=== PATIENT | female | born 2000 | race Caucasian/White ===

== ENCOUNTER 2020-12-04 03:23 | Inpatient (IN) | payer MEDICAID, SELFPAY ==
[2020-12-04] VITALS (19 sets, daily range): BP systolic 99–154; BP diastolic 43–84; PULSE 77–120; RESP 12–24; TEMP 36.2–38.2; O2SAT 96–100
--- NOTE | ~2020-12-04 | CT_ITS ---
EXAMINATION: CT abdomen pelvis wo con DATE: 12/04/2020 07:47 INDICATION: Left flank pain. Low abdominal pain. TECHNIQUE: Computed tomography (CT) of the abdomen and pelvis was performed without intravenous contr ast. Automated exposure control and iterative reconstruction technique were employed. The dose-length product was 792.83 mGy-cm. COMPARISON: None. FINDINGS: The visualized portions of the lung bases are clear without pneumonia or pleural effusion. The heart size is normal. No pericardial effusion. The liver and spleen are normal. The gallbladder i s distended, likely secondary to fasting. The pancreas, adrenal glands, and right kidney are normal. There are greater than 10 stones in left renal pelvis and proximal left ureter measuring up to 18 mm. There are multiple stones in left kidney measuring up to 6 mm. There is moderate left hydronephrosis . There are foci of gas in the proximal left ureter and in a left renal calyx. There is fat stranding in the left perinephric space. There are no dilated loops of bowel. The appendix is normal. There is mild left para-aortic lymphadenopathy. The bones are unremarkable. IMPRESSION: 1. Stones in the proximal left ureter and left kidney with moderate left hydronephrosis and emphysema tous pyelitis. 2. Mild left para-aortic lymphadenopathy, likely reactive. Reviewed, dictated and finalized at location A. WEAR SALES COORDINATOR IMPRESSION: 1. Stones in the proximal left ureter and left kidney with moderate left hydron ephrosis and emphysematous pyelitis. 2. Mild left para-aortic lymphadenopathy, likely reactive.
--- NOTE | ~2020-12-04 | XR_ITS ---
EXAMINATION: XR retrograde pyelo w/stent LT DATE: 12/04/2020 14:38 INDICATION: Left internal ureteral stent placement TECHNIQUE: Fluoroscopic images from a left internal ureteral stent placement are submitted for review . 23 seconds of fluoroscopy time. FINDINGS: Initial left retrograde pyelogram demonstrates filling defects in the left renal collecting system, consistent with stones. There is a left double-J internal ureteral stent projecting in expected position, with proximal [place] loop at the level of the renal pelvis and distal loop in the pelvis within the bladder lumen. IMPRESSION: 1. Left internal ureteral stent placement. Please refer to real-time procedural findings for detail s. Reviewed, dictated and finalized at location B. INE SUBASSEMBLER IMPRESSION: 1. Left internal ureteral stent placement. Please refer to real-time procedur al findings for details.
--- NOTE | ~2020-12-04 | XR_ITS ---
XR abdomen/kub 1V 12/04/2020 09:47 Indication: Left flank pain. Left renal stone. Procedure: KUB Comparison: No prior studies for comparison. Findings: There are left renal stones, largest measuring approximately 1.4 x 2.5 cm greatest dimensio n. Bowel gas pattern. Moderate colonic fecal loading. No acute osseous abnormality. Impression: 1: Left nephrolithiasis. Reviewed, dictated and finalized at location B. US POLICE OFFICER Impression: 1: Left nephrolithiasis.
--- NOTE | 2020-12-04 04:03 | PC.NURSE ---
pt thrashing and rocking back and forth, pt refusing iv ,pulled away.
[2020-12-04 04:27] LABS: Basophils Percent Auto 0.2 % (0.2-1.2); Eosinophils Percent Auto 0.2 % (0-4.4); Hematocrit 38.2 % (37.0-47.0); Hemoglobin 12.5 g/dL (12.0-15.0); Immature Granulocyte Absolute 0.06 K/mm3 (0.00-0.031); Immature Granulocyte Percent A 0.4 % (0-0.5); Lymphocytes Absolute Auto 0.89 K/mm3 (0.9-3.2); Lymphocytes Percent Auto 6.6 % (18.3-44.2); Mean Corpuscular HGB Conc 32.7 g/dl (32-36); Mean Corpuscular Hemoglobin 29.1 pg (26-34); Mean Platelet Volume 9.7 fl (7.4-10.4); Monocytes Absolute Auto 0.6 K/mm3 (0.1-0.6); Monocytes Percent Auto 4.1 % (2.6-8.5); Neutrophils Absolute Auto 11.9 K/mm3 (1.3-6.7); Neutrophils Percent Auto 88.5 % (45.5-73.1); Platelet Count Result 260 k/mm3 (150-375); Red Blood Count 4.29 M/mm3 (4.2-5.4); Red Cell Distribution Width 13.2 % (11.5-14.5); White Blood Count 13.5 K/mm3 (4.5-10.0)
[2020-12-04] MEDS: SODIUM CHLORIDE 0.9% IV 1,000 ML 999 ML IV CONT (04:30)
[2020-12-04] MEDS: ONDANSETRON INJ 4 MG/2 ML VIAL IV PUSH (04:31)
[2020-12-04] MEDS: MORPHINE SULFATE (*CRX) 4 MG/ML INJ IV PUSH ×2 (04:32→10:25)
--- NOTE | 2020-12-04 05:25 | ED.GENADULT ---
HPI - General Adult General Chief complaint: Abdominal Pain <Harley Gerber MD - Last Filed: 12/04/20 07:07> Stated complaint: abd pains <Harley Gerber MD - Last Filed: 12/04/20 07:07> Time Seen by Provider: 12/04/20 03:34 <Harley Gerber MD - Last Filed: 12/04/20 07:07> History of Present Illness HPI narrative: Patient is a 20-year-old female who presents to the ER with left-sided abdominal pain. Began yesterday throughout the left side of the entire abdomen. Has increased in pain her last 24 hours unremarkably so prior to arrival. Mild nausea but no vomiting. No urinary symptoms. Normal bowel movements. No trauma. No history of kidney stones or ovarian cyst. Denies vaginal discharge or bleeding. Has not found any alleviating factors at home. Has not tried any oral medications. <Harley Gerber MD - Last Filed: 12/04/20 07:07> Related Data Allergies/adverse reactions: Allergies Allergy/AdvReac Type Severity Reaction Status Date / Time No Known Allergies Allergy Verified 12/04/20 03:29 <Harley Gerber MD - Last Filed: 12/04/20 07:07> Review of Systems Review of Systems: All systems reviewed & are unremarkable except as noted in HPI and below <Harley Gerber MD - Last Filed: 12/04/20 07:07> Constitutional: Constitutional: Denies chills, Denies fever(s) and Denies weakness <Harley Gerber MD - Last Filed: 12/04/20 07:07> ENT: Denies nasal congestion and Denies sore throat <Harley Gerber MD - Last Filed: 12/04/20 07:07> Cardiovascular: Cardiovascular: Denies chest pain, Denies rapid heart rate and Denies radiating jaw, neck or arm pain <Harley Gerber MD - Last Filed: 12/04/20 07:07> Respiratory: Respiratory: Denies cough and Denies dyspnea <Harley Gerber MD - Last Filed: 12/04/20 07:07> Gastrointestinal: Gastrointestinal: Reports abdominal pain, Denies diarrhea, Reports nausea and Denies vomiting <Harley Gerber MD - Last Filed: 12/04/20 07:07> Genitourinary: Genitourinary: Denies abnormal vaginal bleeding, Denies hematuria, Denies nocturia and Denies dysuria <Harley Gerber MD - Last Filed: 12/04/20 07:07> Musculoskeletal: Musculoskeletal: Denies back pain and Denies muscle cramps <Harley Gerber MD - Last Filed: 12/04/20 07:07> PMFSH Past Medical History Medical History: Medical History (Updated 12/04/20 @ 12:03 by Humza Evans MD) Healthy female adult Overweight (BMI 25.0-29.9) <Harley Gerber MD - Last Filed: 12/04/20 07:07> Surgical History Surgical History: Surgical History No history of previous surgery <Harley Gerber MD - Last Filed: 12/04/20 07:07> Social History Social History: Social History Gender identity (if verbalized by the patient): Female <Harley Gerber MD - Last Filed: 12/04/20 07:07> Exam Narrative: Exam Narrative: GENERAL: Uncomfortable-appearing and moaning, well-nourished, and in mild distress. HEAD: Normocephalic, atraumatic. ENT: Mucous membranes moist. CHEST: Clear to auscultation. No respiratory distress. HEART: Regular rate and rhythm. Normal peripheral pulses. ABDOMEN: Soft, nontender, nondistended. No CVA tenderness. EXTREMITIES: Normal range of motion. No edema. SKIN: Warm, dry, no rash. NEURO: Alert and oriented x3. <Harley Gerber MD - Last Filed: 12/04/20 07:07> Course Course Emergency Course: Care turned myself at shift change. Patient seen evaluate myself agree with initial H&P awaiting CT scan abdomen pelvis Called and discussed with DOROTHY Cummings for urology. Will come see patient this time Urology came to see patient with plan for the OR this morning <John Blanco DO - Last Filed: 12/04/20 12:05> Reevaluation(s) Reevaluation #1: Pain resolved with morphine. Unremarkable abdomen at this
[2020-12-04 05:32] LABS: Alanine Aminotransferase 13 U/L (4-35); Albumin Level 4.1 g/dL (3.5-5.1); Alkaline Phosphatase 62 U/L (38-126); Anion Gap 7 mmol/L (8-16); Aspartate Amino Transferase 24 U/L (14-36); Bilirubin,Total 0.8 mg/dL (0.2-1.3); Blood Urea Nitrogen 14 mg/dL (7-17); Calcium 9.1 mg/dL (8.4-10.2); Carbon Dioxide 27 mmol/L (22-30); Chloride 103 mmol/L (98-107); Estimated CRCL calculation 103 ml/min; Estimated Glomerular Filt Rate > 60; Glucose 129 mg/dL (65-105); Lipase 49 U/L (23-300); Potassium 4.2 mmol/L (3.4-5.0); Sodium 137 mmol/L (137-145)
[2020-12-04 06:01] LABS: Add Urine Microscopic? YES; Appearance Urine Cloudy (Clear); Bacteria Urine Trace /hpf; Bilirubin Urine Negative (Negative); Blood Urine Negative (Negative); Color Urine Yellow (Yellow); Glucose Urine UA Negative (Negative); Ketones Urine Negative (Negative); Leukocyte Esterase Ur 2+ LEU/UL (Negative); Mucus Urine Rare /lpf; Nitrate Urine Negative (Negative); Protein Urine Negative (Negative); Specific Grav Ur 1.016 (1.001-1.035); Squamous Epithelial Cell Urine Occasional /hpf (Few); WBC Urine >75 /hpf
--- NOTE | 2020-12-04 08:20 | PC.NURSE ---
CT results done. blood cultures sent. Dr. Blanco aware. rocephin started. patient resting on stretcher. waiting for further orders.
--- NOTE | 2020-12-04 09:20 | WPDURCON ---
Assessment and Plan Assessment and plan (1) Pyelonephritis: Code(s): N12 - Tubulo-interstitial nephritis, not specified as acute or chronic Status: Acute Assessment and Plan: Continue IV antibiotics, admit to medicine service and tailor antibiotics to urine culture results. (2) Left ureteral stone: Code(s): N20.1 - Calculus of ureter Status: Acute Assessment and Plan: Obtain consent: Cystoscopy, left ureteroscopy with stent placement, left retrograde pyelogram. Keep NPO. Plan to go to the OR this morning. (3) Renal calculus, left: Code(s): N20.0 - Calculus of kidney Status: Acute Assessment and Plan: Will obtain KUB for surgical planning ESWL versus PCNL. Urology Consult Note HPI Date Seen: 12/04/20 Primary Care Provider: INTERACTIVE PRODUCER PHYSICIAN Consult Narrative Narrative: Lisa Levin is a 20 year old female who presented to the ER early this morning with acute onset of abdominal pain in the LLQ and left flank. She denies hematuria, dysuria, frequency, urgency, nausea, vomiting or incontinence. She is very sedated from pain medications and is difficult to arouse to go over medical history. Her WBC is elevated at 13.5, creatinine is normal at 0.90, UA is suspicious of a UTI and urine culture is pending. She is currently on Rocephin and had a CT scan abdomen/pelvis which reveals 10 stones in left renal pelvis and proximal left ureter measuring up to 18 mm. There are multiple stones in left kidney measuring up to 6 mm. There is moderate left hydronephrosis. There are foci of gas in the proximal left ureter and in a left renal calyx. Review of Systems Cardiovascular: Cardiovascular: Denies chest pain Respiratory: Respiratory: Reports no additional respiratory complaints Gastrointestinal: Gastrointestinal: Reports abdominal pain, Denies nausea and Denies vomiting Genitourinary: Genitourinary: Denies hematuria, Denies dysuria, Reports pelvic pain, Reports flank pain and Denies urinary urgency PMFSH Past Medical History Medical History Healthy female adult Surgical History Surgical History No history of previous surgery Social History Social History : Female Meds Home Medications and Allergies Home Medications Medication Instructions Recorded Confirmed Type ciprofloxacin HCl [Cipro] 500 mg PO Q12H #20 tablet 12/04/20 Rx hydrocodone-acetaminophen 1 tablet PO Q6H PRN #12 tablet 12/04/20 Rx ondansetron 4 mg PO Q6H PRN #10 tablet 12/04/20 Rx Allergies Allergy/AdvReac Type Severity Reaction Status Date / Time No Known Allergies Allergy Verified 12/04/20 03:29 Vital Signs Vital Signs - 24 hr 12/04/20 03:26 12/04/20 05:39 Temperature 97.1 F L Pulse Rate 80 89 Respiratory Rate 24 H 18 Blood Pressure 115/53 L 154/84 H Pulse Oximetry 100 100 Exam Resp: Effort & Inspection: normal respiratory effort Cardio: Rate: regular rate GI: GI Palp: No Soft to palpation and Yes Tenderness to palpation present (GI) (LLQ) : General: Yes CVA tenderness on the left Extrem: General: no edema Results Labs CBC & Chem 7: 12/04/20 04:20 12/04/20 04:20 Labs: Short CBC 12/04/20 Range/Units 04:20 WBC 13.5 H (4.5-10.0) K/mm3 Hgb 12.5 (12.0-15.0) g/dL Hct 38.2 (37.0-47.0) % Plt Count 260 (150-375) k/mm3 BMP 12/04/20 04:20 Sodium 137 Potassium 4.2 Chloride 103 Carbon Dioxide 27 BUN 14 Creatinine 0.90 Glucose 129 H Calcium 9.1 Liver Function 12/04/20 Range/Units 04:20 Total Bilirubin 0.8 (0.2-1.3) mg/dL AST 24 (14-36) U/L ALT 13 (4-35) U/L Alkaline Phosphatase 62 (38-126) U/L Albumin 4.1 (3.5-5.1) g/dL Urine 12/04/20 Range/Un
[2020-12-04 10:16] LABS: Lactic Acid Reflex 0.9 mmol/L (0.7-2.1)
[2020-12-04] MEDS: SODIUM CHLORIDE 0.9% IV 1,000 ML 150 ML IV CONT (10:25)
--- NOTE | 2020-12-04 10:25 | PC.NURSE ---
pain medication given as ordered. patient going to the OR today. patient and SO aware. will call OR for time.
--- NOTE | 2020-12-04 10:53 | PC.NURSE ---
report given to Agueda SAM. patient scheduled for OR at 1300. resting on stretcher. alert. SO at bedside.
--- NOTE | 2020-12-04 12:03 | WPDANESEPPF ---
Anes - Initial Pre Proc Eval Procedure: Operation Date: 12/04/20 13:00 Proposed Procedures p Cystoscopy, Left Stent Placement, Left Retrograde Pyelogram(Left) - Vitaliy Ga MD Date/Time: 12/04/20 12:03 Surgeon: Vitaliy Ga MD Pre Op Diagnosis: abd pains Patient Data Age: 20 Gender: F Height: 5 ft 9 in Weight: 91 kg Last Vital Signs Temp 97.1 F L 12/04/20 03:26 Pulse 89 12/04/20 05:39 Resp 18 12/04/20 05:39 BP 154/84 H 12/04/20 05:39 Pulse Ox 100 12/04/20 05:39 Allergies Allergy/AdvReac Type Severity Reaction Status Date / Time No Known Allergies Allergy Verified 12/04/20 03:29 Home Medications Medication Instructions Recorded Confirmed Type ciprofloxacin HCl [Cipro] 500 mg PO Q12H #20 tablet 12/04/20 Rx hydrocodone-acetaminophen 1 tablet PO Q6H PRN #12 tablet 12/04/20 Rx ondansetron 4 mg PO Q6H PRN #10 tablet 12/04/20 Rx Laboratory Tests 12/04/20 12/04/20 12/04/20 04:20 04:20 05:49 WBC 13.5 K/mm3 H K/mm3 (4.5-10.0) RBC 4.29 M/mm3 M/mm3 (4.2-5.4) Hgb 12.5 g/dL g/dL (12.0-15.0) Hct 38.2 % % (37.0-47.0) MCV 89.0 fl fl (80-100) MCH 29.1 pg pg (26-34) MCHC 32.7 g/dl g/dl (32-36) RDW 13.2 % % (11.5-14.5) Plt Count 260 k/mm3 k/mm3 (150-375) MPV 9.7 fl fl (7.4-10.4) Immature Gran % (Auto) 0.4 % % (0-0.5) Neut % (Auto) 88.5 % H % (45.5-73.1) Lymph % (Auto) 6.6 % L % (18.3-44.2) [place] % (Auto) 4.1 % % (2.6-8.5) Eos % (Auto) 0.2 % % (0-4.4) Baso % (Auto) 0.2 % % (0.2-1.2) Lymph # (Auto) 0.89 K/mm3 L K/mm3 (0.9-3.2) [place] # (Auto) 0.6 K/mm3 K/mm3 (0.1-0.6) Eos # (Auto) 0.0 K/mm3 K/mm3 (0-0.3) Baso # (Auto) 0.0 K/mm3 K/mm3 (0.0-0.1) Abs Immat Gran (auto) 0.06 K/mm3 H K/mm3 (0.00-0.031) Absolute Neuts (auto) 11.9 K/mm3 H K/mm3 (1.3-6.7) Absolute Nucleated RBC 0.0 K/mm3 K/mm3 (0.0-0.012) Nucleated RBC % 0.0 % % (0.0-0.2) Sodium 137 mmol/L mmol/L (137-145) Potassium 4.2 mmol/L mmol/L (3.4-5.0) Chloride 103 mmol/L mmol/L (98-107) Carbon Dioxide 27 mmol/L mmol/L (22-30) Anion Gap 7 mmol/L L mmol/L (8-16) BUN 14 mg/dL mg/dL (7-17) Creatinine 0.90 mg/dL mg/dL (0.7-1.0) Estim Creat Clear Calc 103 ml/min ml/min Estimated GFR > 60 (59 - ) Glucose 129 mg/dL H mg/dL (65-105) Lactic Acid Calcium 9.1 mg/dL mg/dL (8.4-10.2) Total Bilirubin 0.8 mg/dL mg/dL (0.2-1.3) AST 24 U/L U/L (14-36) ALT 13 U/L U/L (4-35) Alkaline Phosphatase 62 U/L U/L (38-126) Total Protein 8.0 g/dL g/dL (6.3-8.2) Albumin 4.1 g/dL g/dL (3.5-5.1) Lipase 49 U/L U/L (23-300) Urine Color Yellow (Yellow) Urine Appearance Cloudy H (Clear) Urine pH 8.0 (5.0-9.0) Ur Specific [place] 1.016 (1.001-1.035) Urine Protein Negative mg/dL mg/dL (Negative) Urine Glucose (UA) Negative mg/dL mg/dL (Negative) Urine Ketones Negative mg/dL mg/dL (Negative) Ur Blood (Man) Negative (Negative) Urine Nitrate Negative (Negative) Urine Bilirubin Negative (Negative) Urine Urobilinogen 4.0 mg/dL H mg/dL (<2.0) Leukocyte Esterase Rfl 2+ SHELBIE/UL H SHELBIE/UL (Negative) Urine RBC 3-5 /hpf H /hpf (0-2) Urine WBC >75 /hpf H /hpf Ur Squamous Epith Cells Occasional /hpf /hpf (Few) Urine Bacteria Trace /hpf /hpf Urine Mucus Rare /lpf /lpf 12/04/20 09:47 WBC RBC Hgb Hct MCV MCH MCHC RDW Plt C
[2020-12-04] MEDS: LACTATED RINGERS 1,000 ML 30 ML IV CONT ×2 (12:30→15:15)
--- NOTE | 2020-12-04 13:13 | WPDHPUPDATE1 ---
History and Physical Update Update Date/Time: 12/04/20 13:13 History and Physical has been reviewed, including an updated exam of the patient. There are NO changes in the patient's condition. Risks, benefits, and alternatives have been discussed and questions answered. Patient agrees to proceed with procedure.
--- NOTE | 2020-12-04 13:49 | P.OP_ITS ---
Procedure Note - Detailed Date of procedure: 12/04/20 Pre-op diagnosis: abd pains left UPJ stone Post-op diagnosis: same Procedure performed: cystoscopy, left retrograde pyelogram, left stent placement Description of procedure: she was correctly identified. Informed consent is obtained. She is brought to the operating room. She was prepped and draped in a sterile fashion time out was performed. She was already given antibiotics. Cystoscopy revealed a normal-appearing bladder. Ureteral orifice was normal. No stone was seen on material handling equipment stevedore radiograph. I did a gentle retrograde pyelogram on the left. Several large stones were outlined in the UPJ. They are radiolucent stones. I placed a 4.8 variable length stent. Proximal coil the renal pelvis. Distal coil in the bladder. Cloudy urine was seen coming through the stent. The bladder was drained. Uro jet was applied. She was awakened and transferred to the PACU in stable condition. Anesthesia: MAC Surgeon: Vitaliy Ga MD Estimated blood loss (mL): 0 Drains: Yes ( 4.8 variable length stent) Packing: No Pathology: none sent Complications: No immediate complications Condition: stable Disposition: PACU
[2020-12-04] MEDS: LIDOCAINE HCL 2% GEL UROJET 10 ML PKG MUCOUS MEM (13:52)
--- NOTE | 2020-12-04 16:00 | PM.IMHP ---
H&P: HPI History of Present Illness Date/Time: 12/04/20 16:00 Chief Complaint: Left flank pain. Narrative: This is a 20-year-old healthy female who presented to the emergency department earlier this morning with complaints of left flank pain. Yesterday she developed sudden onset of sharp, shooting pain in the left flank radiating to the left lower quadrant. She gives no alleviating factors and in fact was having a hard time even sitting still in the emergency department due to the pain. She has not noticed any significant alleviating factors aside from pain medications. Associated symptoms include nausea and chills. CT of the abdomen and pelvis done on arrival to the emergency department showed stones in the proximal left ureter and left kidney with moderate left hydronephrosis and emphysematous pyelitis. She is now status post cystoscopy with left retrograde pyelogram, and stent placement per Dr. Ga, and he reported to me that there was purulence at discharge when the stent was placed.. I saw the patient in the recovery room and she reports that her pain is pretty well controlled. Prior to this she had no knowledge of kidney stones. She denies current fever, chills, sweats, nausea, and vomiting. She denies dysuria and hematuria. Review of Systems Review of Systems: Narrative: Twelve systems were reviewed with pertinent positives and negatives as per HPI. Last menstrual period was at the beginning of October. No recent cold or flu symptoms. No exposure to COVID. She has recently been having some discomfort in her left ankle, with mild swelling and erythema although that has improved. She denies injury to the ankle. No history of gout. No history of arthritis or septic arthritis. No concerns for STDs. Except as documented, all other systems were reviewed and are negative. [facility] Past Medical History Medical History Healthy female adult Overweight (BMI 25.0-29.9) Surgical History Surgical History No history of previous surgery Family History Family History (Updated 12/04/20 @ 21:08 by Carla Aguirre PA-C) Other Addiction Social History Social History (Updated 12/04/20 @ 21:13 by Carla Aguirre PA-C) Social History: Surrogate decision maker: Milton Valdes, son. Code status: Full code. 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 Last use: meth 12/04/20; fentanyl 12/03/20 Additional living arrangements comments: The patient lives in [place] with her boyfriend in his grandfather. Additional occupation/education comments: Unemployed. Gender identity (if verbalized by the patient): Female Spiritual care concerns: No Meds Home Medications and Allergies Home Medications Medication Instructions Recorded Confirmed Type ciprofloxacin HCl [Cipro] 500 mg PO Q12H #20 tablet 12/04/20 Rx hydrocodone-acetaminophen 1 tablet PO Q6H PRN #12 tablet 12/04/20 Rx ondansetron 4 mg PO Q6H PRN #10 tablet 12/04/20 Rx Allergies Allergy/AdvReac Type Severity Reaction Status Date / Time No Known Allergies Allergy Verified 12/04/20 17:42 Vital Signs Vital Signs - 24 hr 12/04/20 03:26 12/04/20 05:39 12/04/20 12:17 Temperature 97.1 F L 97.4 F L Pulse Rate 80 89 77 Respiratory Rate 24 H 18 16 Blood Pressure 115/53 L 154/84 H 107/55 L Pulse Oximetry 100 100 99 12/04/20 13:48 12/04/20 14:00 12/04/20 14:15 Temperature 98.0 F Pulse Rate 87 88 90 Respiratory Rate 12 18 18 Blood Pressure 105/52 L 103/55 L 115/59 L Pulse Oximetry 100 100 100 12/04/20 14:30 12/04/20 14:45 12/04/20 15:00 Temperature 97.6 F Pulse Rate 84 94 118 H Respiratory Rate 18 20 24 H Blood Pressure 111/65 117/63 134/80 Pulse Oximetry 100 100 100 12/04/20
--- NOTE | 2020-12-04 16:58 | ADMGEN ---
This patient, Lisa Levin, was admitted to 2 Medical Room 261-01. Patient/family oriented to hospital policies and general routines including ID bracelet, bed and alarms, visiting hours, pain management, procedures, bathroom and other care routines, personal items, smoking policy, room service/diet, and visiting hours. Information on how to activate the Rapid Response Team has been discussed. Patient/Family are encouraged to report perceived risks to care and to ask questions if they do not understand what they are told or what they should do.
[2020-12-04] MEDS: SODIUM CHLORIDE 0.9% IV 1,000 ML 100 ML IV CONT (17:09)
[2020-12-04] MEDS: PHENAZOPYRIDINE HCL 100 MG TABLET 200 MG PO (18:11)
[2020-12-05] MEDS: MORPHINE SULFATE (*CRX) 2 MG/ML INJ IV PUSH ×4 (01:11→19:50)
[2020-12-05] MEDS: SODIUM CHLORIDE 0.9% IV 1,000 ML 100 ML IV CONT ×3 (01:21→22:24)
[2020-12-05 06:00] VITALS: BP 122/59; PULSE 90; RESP 16; TEMP 37; O2SAT 100; BMI 32.3
[2020-12-05 07:49] LABS: Hematocrit 31.2 % (37.0-47.0); Hemoglobin 9.9 g/dL (12.0-15.0); Mean Corpuscular HGB Conc 31.7 g/dl (32-36); Mean Corpuscular Hemoglobin 28.7 pg (26-34); Mean Corpuscular Volume 90.4 fl (80-100); Mean Platelet Volume 9.9 fl (7.4-10.4); Platelet Count Result 181 k/mm3 (150-375); Red Blood Count 3.45 M/mm3 (4.2-5.4); Red Cell Distribution Width 13.9 % (11.5-14.5)
[2020-12-05 08:00] VITALS: BP 114/57; PULSE 97; RESP 16; TEMP 37.2; O2SAT 99
[2020-12-05] MEDS: PHENAZOPYRIDINE HCL 100 MG TABLET 200 MG PO ×3 (08:04→16:25)
[2020-12-05] MEDS: OXYBUTYNIN CHLORIDE 5 MG TABLET PO ×2 (08:04→15:03)
[2020-12-05 08:09] LABS: Anion Gap 3 mmol/L (8-16); Blood Urea Nitrogen 7 mg/dL (7-17); Calcium 8.2 mg/dL (8.4-10.2); Carbon Dioxide 25 mmol/L (22-30); Chloride 108 mmol/L (98-107); Estimated CRCL calculation 120 ml/min; Estimated Glomerular Filt Rate > 60; Glucose 110 mg/dL (65-105); Potassium 3.8 mmol/L (3.4-5.0); Sodium 136 mmol/L (137-145)
[2020-12-05 08:24] LABS: CRP 22.3 mg/dL (<1.0)
--- NOTE | 2020-12-05 09:35 | WPDANESPN ---
Anes - Prog Note Post-Op Date/Time: 12/05/20 09:35 Cardiovascular status: normal Respiratory status: normal Airway patency: baseline Mental status: baseline Post-Op hydration status: normal Vital Signs: Last Vital Signs Temp 37.0 C 12/05/20 06:00 Pulse 90 12/05/20 06:00 Resp 16 12/05/20 06:00 BP 122/59 L 12/05/20 06:00 Pulse Ox 100 12/05/20 06:00 Pain Score (VAS): 0 I/O: Intake & Output 12/04/20 12/05/20 12/05/20 23:59 07:59 15:59 Intake Total 1000 1550 Output Total 1600 Balance 1000 -50 Laboratory Tests 12/05/20 07:35 12/05/20 07:35 12/04/20 12/05/20 12/05/20 09:47 07:35 07:35 WBC 11.0 H RBC 3.45 L Hgb 9.9 L Hct 31.2 L MCV 90.4 MCH 28.7 MCHC 31.7 L RDW 13.9 Plt Count 181 MPV 9.9 Sodium 136 L Potassium 3.8 Chloride 108 H Carbon Dioxide 25 Anion Gap 3 L BUN 7 D Creatinine 0.80 Estim Creat Clear Calc 120 Estimated GFR > 60 Glucose 110 H Lactic Acid 0.9 Calcium 8.2 L C-Reactive Protein 22.3 H Post-procedural complaints: none Patient Feedback: Patient satisfied with anesthetic care.
--- NOTE | 2020-12-05 12:48 | WPDUROPN2 ---
Progress Note: A&P Assessment and Plan (1) Left nephrolithiasis: Code(s): N20.0 - Calculus of kidney Status: Acute Assessment and Plan: KUB shows some of the left renal stones but there were many more idenitifed on retrograde pyelogram and CT. Patient's stent in is in place. She will need to follow up at [facility] for further care as we do not accept her insurance and she will need a PCNL procedure. We will also start Urocit-K for her Uric Acid stones. (2) Kidney stone on left side: Code(s): N20.0 - Calculus of kidney Status: Acute (3) Sepsis: Code(s): A41.9 - Sepsis, unspecified organism Status: Acute Assessment and Plan: Continue IV antibiotics, will tailor to culture results and discharge on appropriate oral antibiotics. Subjective Subjective Date/Time Seen: 12/05/20 12:48 POD #1 cystoscopy, left retrograde pyelogram, left stent placement. Patient is doing well, appears more comfortable, although she is very sedated and difficult to arouse. Creatinine is improved from 1.10 to 0.70 and WBC is down from 15.3 to 11.3. KUB shows left nephrolithiasis, but retrograde pyleogram shows a renal pelvis full of stones that are uric acid as they are not all visible on KUB. Urine Culture still pending. Vitals are stable. Review of Systems Respiratory: Respiratory: Reports no additional respiratory complaints Gastrointestinal: Gastrointestinal: Reports abdominal pain, Denies nausea and Denies vomiting Genitourinary: Genitourinary: Denies hematuria, Denies dysuria, Reports flank pain and Denies urinary urgency Exam Resp: Effort & Inspection: normal respiratory effort Cardio: Rate: regular rate GI: GI Palp: Yes Soft to palpation and No Tenderness to palpation present (GI) : General: Yes no CVA tenderness Extrem: General: no edema Objective Data Vital Signs Vital Signs: Vital Signs - 24 hr 12/04/20 13:48 12/04/20 14:00 12/04/20 14:15 Temperature 98.0 F Pulse Rate 87 88 90 Respiratory Rate 12 18 18 Blood Pressure 105/52 L 103/55 L 115/59 L Pulse Oximetry 100 100 100 12/04/20 14:30 12/04/20 14:45 12/04/20 15:00 Temperature 97.6 F Pulse Rate 84 94 118 H Respiratory Rate 18 20 24 H Blood Pressure 111/65 117/63 134/80 Pulse Oximetry 100 100 100 12/04/20 15:08 12/04/20 15:20 12/04/20 15:35 Temperature 100.8 F H 100.6 F H 100.4 F H Pulse Rate 120 H 115 H 108 H Respiratory Rate 24 H 22 H 22 H Blood Pressure 137/83 139/74 125/62 Pulse Oximetry 96 100 100 12/04/20 15:50 12/04/20 16:05 12/04/20 16:20 Temperature 100.4 F H Pulse Rate 108 H 108 H 113 H Respiratory Rate 20 20 20 Blood Pressure 104/50 L 99/43 L 99/47 L Pulse Oximetry 100 99 99 12/04/20 16:35 12/04/20 16:48 12/04/20 17:57 Temperature 98.5 F Pulse Rate 110 H 115 H 105 H Respiratory Rate 20 20 20 Blood Pressure 109/48 L 111/52 L 134/54 L Pulse Oximetry 98 100 99 12/04/20 21:58 12/05/20 06:00 12/05/20 08:00 Temperature 98.1 F 98.6 F 98.9 F Pulse Rate 93 90 97 Respiratory Rate 14 16 16 Blood Pressure 104/60 122/59 L 114/57 L Pulse Oximetry 98 100 99 Intake/Output Intake/Output: Intake & Output 12/02/20 12/03/20 12/04/20 12/05/20 23:59 23:59 23:59 23:59 Intake Total 2250 2960 Output Total 1600 Balance 2250 1360 Meds/Results Medications: Active Medications Generic Name Dose Route Start Last Admin Trade Name Freq PRN Reason Stop Dose Admin Ceftriaxone Sodium/Dextrose 1 gm in 50 mls @ 100 mls/hr 12/05/20 09:00 12/05/20 10:25 Rocephin 1 Gm/D5w 50 Ml IVPB Infused QAM PALOMO Infusion Sodium Chloride 1,000 mls @ 100 mls/hr 12/04/20 16:45 12/05/20 11:33 Normal Saline Iv IV CONT 100 mls/hr .Q10H PALOMO Administration Morphine Sulfate 2 mg 12/04/20 13:51 12/05/20 11:34 Morphine Sulfate (*Crx) 2 Mg/Ml Inj IV PUSH 2 mg Q4H PRN Administration Pain Rated 7-10 Oxybutynin Chloride 5 mg 12/04/20 17:00 02/0
[2020-12-05] MEDS: POTASSIUM CITRATE 5 MEQ TAB CR 10 MEQ PO ×2 (15:03→16:25)
[2020-12-05 16:00] VITALS: BP 123/68; PULSE 98; RESP 16; TEMP 37.3; O2SAT 100
[2020-12-05 20:00] VITALS: PULSE 91; RESP 16; O2SAT 99
[2020-12-05 22:00] VITALS: BP 118/59; PULSE 91; RESP 16; TEMP 36.5; O2SAT 99
[2020-12-06 06:00] VITALS: BP 126/57; PULSE 98; RESP 16; TEMP 36.6; O2SAT 95
[2020-12-06] MEDS: PHENAZOPYRIDINE HCL 100 MG TABLET 200 MG PO ×2 (08:31→12:10)
[2020-12-06] MEDS: POTASSIUM CITRATE 5 MEQ TAB CR 10 MEQ PO ×2 (08:32→12:10)
[2020-12-06] MEDS: SODIUM CHLORIDE 0.9% IV 1,000 ML 100 ML IV CONT (08:40)
--- NOTE | 2020-12-06 13:59 | P.DS_ITS ---
DS: Admitting Diagnosis Admitting Diagnosis Admitting Diagnosis: Left Ureteral Stone DS: Discharge Diagnosis Discharge Diagnosis (1) Left nephrolithiasis: Code(s): N20.0 - Calculus of kidney Status: Acute DS: Summary Hospital Course Hospital Course: See Discahrge Summary Time Spent with Patient Time attestation: Patient was evaluated initially in the ER on 12/04/2020 for LLQ pain and left flank pain. She was diagnosed with a left proximal ureteral stone and left renal stones. She was then taken to the OR with Dr. Ga for a Cystsocpy, left stent placement, left retrograde pyelogram and started on IV antibiotics, blood and urine cultures were taken. She was admitted for two days following to treat UTI and control pain. Her urine and blood cultures were suprisingly negative. She is feeling much better today and is tolerating her pain and stent well. She will be discharged home, on a regular diet, activity as tolerated. She has no previous home medications but will start Uro-Cit K to dissolve her uric acid stones and follow up with [facility] for more definitive stone care. Exam Resp: Effort & Inspection: normal respiratory effort Cardio: Rate: regular rate GI: GI Palp: Yes Soft to palpation and No Tenderness to palpation present (GI) : General: Yes no CVA tenderness Extrem: General: no edema DS: Data Data Completed and Pending Labs on day of discharge: Preliminary micro results at discharge 12/04/20 09:46 Blood Culture - Preliminary Blood Discharge Plan Discharge Attending physician on discharge: Vitaliy Ga Consulting providers: Luis Nunes Discharging Clinician: Sallie Cummings Anticipated Discharge Date/Time: 12/06/20 10:49 Patient Disposition: Home, Self-Care Activity: may shower Diet: regular Discharge Instructions: Patient will need to follow up with [facility] [phone] or [phone]. She will need to get records from here to take with her and they will need to proceed with a PCNL per Dr. Ga's recommendation. Go to the ER if a fever of >102 develops. Bloody/Cloudy urine to be expected while stent is in place. Stent will remain in until stones are further treated. Patient Instructions: Antibiotic Form, Kidney Infection (ED) Stand Alone Forms: General Discharge Information Follow-up/Referrals: Vitaliy Ga MD [Physician] - PHYSICIAN,[employer] [Primary Care Provider] - Luis Nunes DO [Physician] - 1 Week Discharge Medications: New hydrocodone-acetaminophen 5-325 mg tablet 1 tablet PO Q6H PRN (Reason: pain) Qty: 12 RF: 0 ondansetron 4 mg tablet,disintegrating 4 mg PO Q6H PRN (Reason: nausea and vomiting) Qty: 10 RF: 0 ciprofloxacin HCl [Cipro] 500 mg tablet 500 mg PO Q12H Qty: 20 RF: 0 potassium citrate [Urocit-K 5] 5 mEq (540 mg) Tablet Extended Release 10 meq PO TID 30 Days Qty: 90 RF: 6 Date of admission: 12/04/20 16:42 Primary Care Provider: PHYSICIAN,[employer] Admitting Provider: Vitaliy Ga Attending physician on admission: Vitaliy Ga Condition: Stable Quality VTE Prophylaxis VTE prophylaxis: mechanical ordered
--- NOTE | 2020-12-06 14:03 | P.PNUR_ITS ---
Progress Note: A&P Assessment and Plan (1) Left nephrolithiasis: Code(s): N20.0 - Calculus of kidney Status: Acute Assessment and Plan: Patient's stent is in place. We do not accept her insurance and she will likely need a PCNL. She was given a referral to [facility] and should follow up with them after obtaining her records here. Ok to discharge home with Uro-Cit K to hopefully dissolve stones that are not visible on KUB. (2) Left ureteral stone: Code(s): N20.1 - Calculus of ureter Status: Acute Subjective Subjective Date/Time Seen: 12/06/20 14:03 POD #2 Cystoscopy, left ureteroscopy with stent placement, left retrograde pyelogram. The patient is much more alert today, denies pain or stent intolerance. Urine and blood cultures are negative. Review of Systems Cardiovascular: Cardiovascular: Denies chest pain Respiratory: Respiratory: Denies no additional respiratory complaints Gastrointestinal: Gastrointestinal: Denies abdominal pain, Denies nausea and Denies vomiting Genitourinary: Genitourinary: Denies hematuria, Denies flank pain and Denies urinary urgency Exam Resp: Effort & Inspection: normal respiratory effort Cardio: Rate: regular rate GI: GI Palp: Yes Soft to palpation and No Tenderness to palpation present (GI) : General: Yes no CVA tenderness Extrem: General: no edema Objective Data Vital Signs Vital Signs: Vital Signs - 24 hr 12/05/20 16:00 12/05/20 20:00 12/05/20 22:00 Temperature 99.2 F 97.7 F Pulse Rate 98 91 91 Respiratory Rate 16 16 16 Blood Pressure 123/68 118/59 L Pulse Oximetry 100 99 99 12/06/20 06:00 Temperature 97.9 F Pulse Rate 98 Respiratory Rate 16 Blood Pressure 126/57 L Pulse Oximetry 95 Intake/Output Intake/Output: Intake & Output 12/03/20 12/04/20 12/05/20 12/06/20 23:59 23:59 23:59 23:59 Intake Total 2250 5070 2200 Output Total 3500 1000 Balance 2250 1570 1200 Meds/Results Radiology Results: ITS Impressions Abdomen/Pelvis CT 12/04/20 07:48 IMPRESSION: 1. Stones in the proximal left ureter and left kidney with moderate left hydronephrosis and emphysematous pyelitis. 2. Mild left para-aortic lymphadenopathy, likely reactive. ADDENDUM: 12/04/20 0818 I discussed this case with Dr. Blanco. Abdomen X-Ray 12/04/20 09:48 Impression: 1: Left nephrolithiasis. Retrograde Pyelogram 12/04/20 15:17 IMPRESSION: 1. Left internal ureteral stent placement. Please refer to real-time procedural findings for details. Quality VTE Prophylaxis VTE prophylaxis: mechanical ordered
== END 2020-12-06 13:05 | disposition home or self-care (01) | DRG 465 ==
LOC: ANHED 09:39 → ANHSURGERY 10:06 → ANH2MED 16:17 → ANHSURGERY 16:45 → ANH2MED 16:46
PROVIDERS: Emergency Medicine; Physician Assistant; Urology; Admitting Provider Internal Medicine; Emergency Provider Emergency Medicine; Visit Provider Nurse Practitioner Adult Health
PROC: 0T778DZ Dilation of Left Ureter with Intraluminal Device, Via Natural or Artificial Opening Endoscopic (ICD-10-PCS; CPT 52352; principal; 2020-12-04 13:00)
DX: N20.2 Calculus of kidney with calculus of ureter (principal); N12 Tubulo-interstitial nephritis, not specified as acute or chronic; M25.572 Pain in left ankle and joints of left foot; F19.90 Other psychoactive substance use, unspecified, uncomplicated; Z28.21 Immunization not carried out because of patient refusal
CPT/HCPCS: 36415; 74018; 74176; 74420; 80048; 80053; 81001; 81025; 83605; 83690; 85025; 85027; 86140; 87040; 87086; 87088; 96361; 96365; 96367; 96375; 96376; 99285; A9270; C1758; C1769; C2617; J0131; J0696; J1100; J2250; J2270; J2405; J2704; J3010; J7030; J7120; Q9966

== ENCOUNTER 2020-12-28 12:16 | Emergency (ER) | payer MEDICAID, SELFPAY ==
--- NOTE | ~2020-12-28 | CT_ITS ---
EXAMINATION: CT abdomen pelvis wo con DATE: 12/28/2020 12:55 INDICATION: Flank pain. TECHNIQUE: Computed tomography (CT) of the abdomen and pelvis was performed without intravenous contr ast. Automated exposure control and iterative reconstruction technique were employed. The dose-length product was 325.25 mGy-cm. COMPARISON: CT abdomen and pelvis 12/04/2020 FINDINGS: The visualized portions of the lung bases are clear without pneumonia or pleural effusion. The liver, gallbladder, spleen, pancreas, adrenal glands, and right kidney are normal. There are grea ter than 10 stones in left kidney measuring up to 4 mm. There are multiple stones in left renal pelvi s measuring up to 18 mm. There is mild left hydronephrosis. There is a left internal ureteral stent w ith proximal tip distal to the 18 mm stone in the renal pelvis. There is asymmetric edema around left kidney. There are no dilated loops of bowel. The appendix is normal. There is left paraumbilical lym phadenopathy. The bones are unremarkable. IMPRESSION: 1. Stones in the left kidney and left renal pelvis with mild left hydronephrosis. Left internal urete ral stent with proximal tip of the stent distal to the largest stone in the renal pelvis. 2. Mild left para-aortic lymphadenopathy, likely reactive. Reviewed, dictated and finalized at location [facility]. [facility] IMPRESSION: 1. Stones in the left kidney and left renal pelvis with mild left hydronephrosi s. Left internal ureteral stent with proximal tip of the stent distal to the la rgest stone in the renal pelvis. 2. Mild left para-aortic lymphadenopathy, likely reactive.
[2020-12-28 12:23] VITALS: BP 135/82; PULSE 118; RESP 18; TEMP 36.4
--- NOTE | 2020-12-28 12:26 | ED.FEMALEGU ---
HPI - Female Genitourinary General Chief complaint: Urogenital-Female Stated complaint: my kidney stones Time Seen by Provider: 12/28/20 12:24 History of Present Illness HPI Narrative: 20 yo female w/ h/o kidney stone presents to the ED for flank pain. She was seen here las month for kidney stones. She had a left ureteral stent placed and she was discharged with instructions to follow-up at [place]. She did not fill any prescriptions or follow-up. She was doing well until the past couple of days. She is now having left flank pain again. No fever, chills, nausea, vomiting, diarrhea. Related Data Allergies Allergy/AdvReac Type Severity Reaction Status Date / Time No Known Allergies Allergy Verified 12/04/20 17:42 Review of Systems Review of Systems: All systems reviewed & are unremarkable except as noted in HPI and below Constitutional: Constitutional: Reports no additional constitutional complaints ENT: Denies dizziness Cardiovascular: Cardiovascular: Denies chest pain Respiratory: Respiratory: Denies dyspnea Gastrointestinal: Gastrointestinal: Denies abdominal pain Genitourinary: Genitourinary: Denies hematuria and Denies dysuria Neurologic: Denies weakness [facility] Past Medical History Medical History 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 Overweight (BMI 25.0-29.9) Surgical History Surgical History No history of previous surgery Family History Family History Other Addiction Social History Social History Social History: Surrogate decision maker: Milton Valdes, son. Code status: Full code. 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 Last use: meth 12/04/20; fentanyl 12/03/20 Additional living arrangements comments: The patient lives in [place] with her boyfriend in his grandfather. Additional occupation/education comments: Unemployed. Gender identity (if verbalized by the patient): Female Spiritual care concerns: No Exam Const: General: healthy appearing, no acute distress and alert Orientation/consciousness: patient oriented x3 HENMT: Head: normal to inspection Neck: Neck: normal visual inspection Resp: Effort & Inspection: normal respiratory effort Auscultation: clear to auscultation bilaterally, no rales, no rhonchi and no wheezes Cardio: Jugular venous distension: no JVD Rate: regular rate Rhythm: regular rhythm Heart sounds: no murmurs GI: Inspection: non-distended GI Palp: Yes Soft to palpation and No Tenderness to palpation present (GI) : General: Yes CVA tenderness on the left Skin: General skin exam: normal color Neuro: General: patient oriented x3 and moves all extremities Speech: normal speech Extrem: General: no edema Psych: Appearance: well kempt Affect: normal affect Course Vital Signs Vital signs: Vital Signs Temperature 36.4 C L 12/28/20 12:23 Pulse Rate 118 H 12/28/20 12:23 Respiratory Rate 18 12/28/20 12:23 Blood Pressure 135/82 12/28/20 12:23 Temperature 36.4 C L 12/28/20 12:23 Pulse Rate 78 12/28/20 15:28 Respiratory Rate 18 12/28/20 15:28 Blood Pressure 132/78 12/28/20 15:28 Pulse Oximetry 99 12/28/20 15:28 MDM - Female Genitourinary MDM Narrative Medical decision making narrative: UA concerning for infection. Patient seen by Dr. Drake. He will try to schedule her for lithotripsy. I will start antibiotics and provide a small amount of pain medication in the mean time. Differential Diagnosis Differential diagnosis: Likely urinary tract infection Medical Records Attestation: I reviewed the patient's medical records. Lab Data Att
[2020-12-28 12:53] LABS: Add Urine Microscopic? YES; Appearance Urine Cloudy (Clear); Bacteria Urine 4+ /hpf; Bilirubin Urine Negative (Negative); Blood Urine 1+ (Negative); Color Urine Amber (Yellow); Glucose Urine UA Negative (Negative); Ketones Urine Trace mg/dL (Negative); Leukocyte Esterase Ur 3+ LEU/UL (Negative); Mucus Urine Few /lpf; Nitrate Urine Positive (Negative); Protein Urine 2+ mg/dL (Negative); Specific Grav Ur 1.027 (1.001-1.035); Squamous Epithelial Cell Urine Many /hpf (Few); WBC Clumps Urine Present /HPF; WBC Urine >75 /hpf
[2020-12-28 13:39] LABS: Basophils Percent Auto 0.3 % (0.2-1.2); Eosinophils Percent Auto 0.4 % (0-4.4); Hematocrit 33.2 % (37.0-47.0); Hemoglobin 10.8 g/dL (12.0-15.0); Immature Granulocyte Absolute 0.03 K/mm3 (0.00-0.031); Immature Granulocyte Percent A 0.3 % (0-0.5); Lymphocytes Absolute Auto 1.16 K/mm3 (0.9-3.2); Lymphocytes Percent Auto 10.8 % (18.3-44.2); Mean Corpuscular HGB Conc 32.5 g/dl (32-36); Mean Corpuscular Hemoglobin 27.8 pg (26-34); Mean Corpuscular Volume 85.6 fl (80-100); Mean Platelet Volume 9.1 fl (7.4-10.4); Monocytes Absolute Auto 1.1 K/mm3 (0.1-0.6); Neutrophils Absolute Auto 8.4 K/mm3 (1.3-6.7); Neutrophils Percent Auto 78.2 % (45.5-73.1); Platelet Count Result 341 k/mm3 (150-375); Red Blood Count 3.88 M/mm3 (4.2-5.4); Red Cell Distribution Width 13.7 % (11.5-14.5); White Blood Count 10.8 K/mm3 (4.5-10.0)
[2020-12-28 13:53] LABS: Potassium 4.1 mmol/L (3.4-5.0)
[2020-12-28 13:54] LABS: Anion Gap 8 mmol/L (8-16); Blood Urea Nitrogen 11 mg/dL (7-17); Calcium 9.7 mg/dL (8.4-10.2); Carbon Dioxide 29 mmol/L (22-30); Chloride 97 mmol/L (98-107); Estimated CRCL calculation 137 ml/min; Estimated Glomerular Filt Rate > 60; Glucose 92 mg/dL (65-105); Sodium 134 mmol/L (137-145)
[2020-12-28] MEDS: CEFDINIR 300 MG CAPSULE PO (15:27)
[2020-12-28 15:28] VITALS: BP 132/78; PULSE 78; RESP 18; O2SAT 99
== END 2020-12-28 15:29 | disposition home or self-care (01) ==
PROVIDERS: Emergency Provider Emergency Medicine
DX: N39.0 Urinary tract infection, site not specified (principal); N13.2 Hydronephrosis with renal and ureteral calculous obstruction; Z87.442 Personal history of urinary calculi; E66.3 Overweight; Z68.32 Body mass index [BMI] 32.0-32.9, adult; Z96.0 Presence of urogenital implants
CPT/HCPCS: 36415; 74176; 80048; 81001; 81025; 85025; 87077; 87086; 87088; 87186; 96365; 99284; A9270; J0696